=== PATIENT | male | born 1935 | race Hispanic/Latino ===

== ENCOUNTER 2016-08-13 13:32 | Emergency (ER) | payer MEDICARE, BC ==
[2016-08-13 13:33] VITALS: BMI 37.1
[2016-08-13 14:32] VITALS: PULSE 78
[2016-08-13 15:29] LABS: HEMATOCRIT 36.2 % (35.0-51.0); MEAN CELL VOLUME 94.3 fl (80.0-94.0); MEAN CORPUSCULAR HEMOGLOBIN 31.9 pg (27.0-31.0); MEAN CORPUSCULAR HGB CONC 33.8 g/dL (33.0-37.0); RED CELL DISTRIBUTION WIDTH 13.9 % (11.5-14.5); WHITE BLOOD COUNT 5.2 K/uL (4.8-10.8)
--- NOTE | 2016-08-13 15:29 | ED PDOC ---
HPI: Hypertension/Hypotension Time Seen by Provider: 08/13/16 14:20 Chief Complaint (Nursing): High Blood Pressure Chief Complaint (Provider): Watery eyes for a long time History Per: Patient History/Exam Limitations: no limitations Onset/Duration Of Symptoms: Days Current Symptoms Are (Timing): Still Present Associated Symptoms: denies: Chest Pain, Dyspnea, Dizziness, Blurred Vision, Focal Weakness, Headache Quality Of Symptoms: Asymptomatic Additional Complaint(s): Pt states when he told people at his back about his watery eyes they told him to check his blood pressure. Pt states he went to [facility] and checked his BP. PT states systolic was 148 so he came to the ER. Pt states he eats a lot of fish and thinks his watery eyes are due to the fish. Pt denies similar in the past. PT reports seeing his eye doctor 3 months ago but the watery eyes began shorty after (approx 2 months). Past Medical History Reviewed: Historical Data, Nursing Documentation, Vital Signs Vital Signs: Last Vital Signs Temp 98.4 F 08/13/16 13:46 Pulse 78 08/13/16 14:30 Resp 18 08/13/16 13:46 BP 127/84 08/13/16 14:30 Pulse Ox 99 08/13/16 13:46 - Medical History PMH: Back Problems - Surgical History Surgical History: Denies: Pacemaker - Family History Family History: States: No Known Family Hx - Home Medications Home Medications: Ambulatory Orders Medication Instructions Recorded Acetaminophen [Tylenol] 325 mg PO PRN 08/26/13 Naproxen 500 mg PO Q12 #14 tab 06/29/14 Cetirizine HCl [Zyrtec] 10 mg PO DAILY #15 tab.rapdis 08/13/16 - Allergies Allergies/Adverse Reactions: Allergies Allergy/AdvReac Type Severity Reaction Status Date / Time azithromycin Allergy RASH Verified 08/13/16 13:46 Review of Systems ROS Statement: Except As Marked, All Systems Reviewed And Found Negative Eyes: Positive for: Other (Watery eyes ) Physical Exam - Reviewed Nursing Documentation Reviewed: Yes Vital Signs Reviewed: Yes - Physical Exam Appears: Positive for: Well, Non-toxic, No Acute Distress Head Exam: Positive for: ATRAUMATIC, NORMAL INSPECTION, NORMOCEPHALIC Skin: Positive for: Normal Color, Warm, DRY Eye Exam: Positive for: Normal appearance, EOMI, PERRL ENT: Positive for: Normal ENT Inspection Neck: Positive for: Normal, Painless ROM Cardiovascular/Chest: Positive for: Regular Rate, Rhythm Respiratory: Positive for: CNT, Normal Breath Sounds Gastrointestinal/Abdominal: Positive for: Normal Exam, Bowel Sounds, Soft Back: Positive for: Normal Inspection Extremity: Positive for: Normal ROM Neurologic/Psych: Positive for: Alert, Oriented - Laboratory Results Result Diagrams: 08/13/16 15:20 08/13/16 15:20 - ECG O2 Sat by Pulse Oximetry: 99 Disposition - Clinical Impression Clinical Impression: Seasonal allergies - Patient ED Disposition Is Patient to be Admitted: No - Disposition Referrals: Santos Marroquin MD [Staff Provider] - Disposition: Routine/Home Disposition Time: 16:56 Condition: GOOD Prescriptions: Cetirizine HCl [Zyrtec] 10 mg PO DAILY #15 tab.rapdis Instructions: Allergies (ED) Print Language: POLISH
[2016-08-13 15:42] LABS: ALB/GLOB RATIO 1.2 (1.0-2.1); ALKALINE PHOSPHATASE 118 U/L (38-126); ALT/SGPT 31 U/L (21-72); AST/SGOT 29 U/L (17-59); BILIRUBIN,TOTAL 0.4 mg/dl (0.2-1.3); BLOOD UREA NITROGEN 18 mg/dl (9-20); CALCIUM 9.1 mg/dL (8.4-10.2); CARBON DIOXIDE 24 mmol/L (22-30); CHLORIDE 106 mmol/L (98-107); GFR AFRICAN-AMERICAN > 60; GLUCOSE,RANDOM 129 mg/dL (75-110); POTASSIUM 4.3 MMOL/L (3.6-5.0); SODIUM 140 mmol/l (132-148); TOTAL PROTEIN 7.4 G/DL (6.3-8.2)
[2016-08-13 17:58] VITALS: BP 126/81; RESP 16; TEMP 98; O2SAT 98
--- NOTE | 2016-08-18 07:15 | CARD ---
APPROVED REPORT EKG Measurement Heart [id number] <Conclusion> Sinus rhythm with premature atrial complexes Otherwise normal ECG
== END 2016-08-13 17:55 | disposition home or self-care (01) ==
LOC: H.ER 13:32
DX: J30.2 Other seasonal allergic rhinitis (principal); I10 Essential (primary) hypertension; Z88.0 Allergy status to penicillin

== ENCOUNTER 2016-11-23 10:33 | Inpatient (IN) | payer BC, MEDICARE ==
[2016-11-23 10:33] VITALS: BMI 37.1
[2016-11-23] MEDS ORDERED: Sodium Chloride 0.9% 1,000 ML IV STA (11:13)
[2016-11-23] MEDS ORDERED: Iohexol 240 (50 ml) PO ONE (11:31)
[2016-11-23] MEDS ORDERED: Iohexol 240 (50 ml) ONE (11:50)
--- NOTE | 2016-11-23 12:02 | ED PDOC ---
HPI: Abdomen Time Seen by Provider: 11/23/16 10:59 Chief Complaint (Nursing): GI Problem Chief Complaint (Provider): GI Problem History Per: Patient History/Exam Limitations: no limitations Onset/Duration Of Symptoms: Days Location?: [facility] Current Symptoms Are (Timing): Still Present Additional Complaint(s): 81 y/o male presents to the emergency department with a complaint of an abdominal pain, vomiting, and diarrhea since yesterday, 11/22/2016, after eating a banana. Associated with generalized weakness, chills, and urinating small amounts with strong odor. Denies chest pain, shortness of breath, syncope , or melena. Past Medical History Reviewed: Historical Data, Nursing Documentation, Vital Signs Vital Signs: Last Vital Signs Temp 97.8 F 11/23/16 11:00 Pulse 91 H 11/23/16 11:00 Resp 19 11/23/16 11:00 BP 155/83 H 11/23/16 11:00 Pulse Ox 99 11/23/16 16:20 - Medical History PMH: Back Problems - Surgical History Surgical History: Denies: Pacemaker Other surgeries: laproscoptomy polyp removal about 20 years ago - Family History Family History: States: Unknown Family Hx - Social History Current smoker - smoking cessation education provided: No Alcohol: Social Drugs: Denies - Home Medications Home Medications: Ambulatory Orders Medication Instructions Recorded No Known Home Med 11/23/16 - Allergies Allergies/Adverse Reactions: Allergies Allergy/AdvReac Type Severity Reaction Status Date / Time azithromycin Allergy RASH Verified 08/13/16 13:46 Review of Systems ROS Statement: Except As Marked, All Systems Reviewed And Found Negative Constitutional: Positive for: Chills, Weakness (Generalized) Cardiovascular: Negative for: Chest Pain Respiratory: Negative for: Shortness of Breath Gastrointestinal: Positive for: Vomiting, Abdominal Pain, Diarrhea. Negative for: Melena Genitourinary Male: Positive for: Other (Urinating small amounts with strong odor) Neurological: Negative for: Other (Syncope) Physical Exam - Reviewed Nursing Documentation Reviewed: Yes Vital Signs Reviewed: Yes - Physical Exam Appears: Positive for: Non-toxic (With poor hygiene and smells of urine), No Acute Distress Head Exam: Positive for: ATRAUMATIC, NORMAL INSPECTION, NORMOCEPHALIC Skin: Positive for: Normal Color, Warm, Dry Neck: Positive for: Normal, Supple Cardiovascular/Chest: Positive for: Regular Rate, Rhythm. Negative for: Murmur Respiratory: Positive for: Normal Breath Sounds. Negative for: Accessory Muscle Use, Respiratory Distress Gastrointestinal/Abdominal: Positive for: Soft, Tenderness (to the lower abdominal region), Distended (Softly). Negative for: Normal Exam Extremity: Positive for: Normal ROM. Negative for: Pedal Edema Neurologic/Psych: Positive for: Alert, Oriented (x3) - Laboratory Results Result Diagrams: 11/23/16 11:55 11/23/16 11:55 - ECG O2 Sat by Pulse Oximetry: 99 (RA) Pulse Ox Interpretation: Normal Medical Decision Making Medical Decision Making: Time: 11:13 Initial impression: Abdominal pain. Blood and CT ordered rule out obstruction. Initial plan: --Abd & Pelvis PO & IV Contrast CT --CMP --Lipase --CBC w/ diff --Bentyl 10 mg PO --Iohexol 50 ml PO --Urine Culture --Urinalysis --Sodium Chloride 1L IV --Reevaluation Scribe Attestation: Documented by Priscila Ledesma, acting as a scribe for Ronnie Portillo MD. Provider Scribe Attestation: All medical record entries made by the Scribe were at my direction and personally dictated by me. I have reviewed the chart and agree that the record accurately reflects my personal performance of the history, physical exam, medical decision making, and the department course for this patient. I have also personally directed, reviewed, and agree with the discharge instructions and disposition. ED OBSERVATION Discharge: Yes Date of observation admission: 11/23/16 Time of observation admission: 13:30 - Observation admission statement Patient is being placed in observation because:: abdominal pain and UTI - Goals of Observation Goals of observation are:: resolution of symptoms - Progress Note Progress Note: 11/23/16 15:00 --Patient resting comfortably and pending CT results. 11/23/16 15:10 Abd & pelvis CT FINDINGS: LOWER THORAX: There is paraseptal emphysema in the lower lobes. LIVER: The liver is normal in size and there is diffuse fatty infiltration. No gross lesion or ductal dilatation. GALLBLADDER AND BILE DUCTS: The gallbladder is well distended. There is a solitary gallstone PICC PANCREAS: Mild fatty atrophy. No gross lesion or ductal dilatation. SPLEEN: Normal without focal lesion. ADRENALS: Normal in size without discrete nodule. KIDNEYS AND URETERS: Normal in size and there is homogeneous enhancement. No hydronephrosis. No solid mass. VASCULATURE: Unremarkable. No aortic aneurysm. BOWEL: Status post right hemicolectomy and ileotransverse anastomosis. The stomach is markedly distended. There is moderate diffuse dilatation of the small bowel loops with air-fluid levels. No definite transition zone is identified. There is mild sigmoid diverticulosis without CT evidence for acute diverticulitis. The colon is fluid-filled. PERITONEUM: No free fluid. No free air. LYMPH NODES: No enlarged lymph nodes. BLADDER: Unremarkable. REPRODUCTIVE: Mild enlargement of the prostate gland. 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 OTHER FINDINGS: None. IMPRESSION: 1. Findings are most compatible with high-grade acute small bowel obstruction. No definite transition zone is identified but given diffuse dilatation of the small bowel loops leading up to ileocolic anastomosis, adhesions is a likely etiology. 2. Mild sigmoid diverticulosis without CT evidence for acute diverticulitis. 3. Fatty liver. 11/23/16 15:14 --Rocephin 1 gm for UTI --Nasogastric Tube Insertion ordered, pt refused. 11/23/16 15:31 --General surgery consult: Consulted with Dr. Niall Cary MD- surg resident aware and at bedside ~1550 --Admit to hospital routine: Inpatient in telemetry for small bowel obstruction and UTI under the care of Dr. Santos Marroquin MD Disposition - Clinical Impression Clinical Impression: SBO (small bowel obstruction), UTI (urinary tract infection) - Patient ED Disposition Is Patient to be Admitted: Yes (As inpatient in telemetry) Counseled Patient/Family Regarding: Studies Performed, Diagnosis - Disposition Disposition Time: 13:29 Condition: FAIR - Pt Status Changed To: Hospital Disposition Of: Inpatient - Admit Certification Admit to Inpatient:: After my assessment, the patient will require hospitalization for at least two midnights. This is because of the severity of symptoms shown, intensity of services needed, and/or the medical risk in this patient being treated as an outpatient. - POA Present On Arrival: None
[2016-11-23 12:03] LABS: BASO % 0.2 % (0.0-2.0); EOS # 0.1 K/uL (0.0-0.7); EOS % 0.7 % (0.0-4.0); HEMATOCRIT 42.6 % (35.0-51.0); LYMPH # 3.3 K/uL (1.0-4.3); LYMPH % 30.4 % (20.0-40.0); MEAN CELL VOLUME 95.4 fl (80.0-94.0); MEAN CORPUSCULAR HEMOGLOBIN 31.8 pg (27.0-31.0); MEAN CORPUSCULAR HGB CONC 33.4 g/dL (33.0-37.0); MEAN PLATELET VOLUME 9.9 fl (7.2-11.7); MONO # 0.8 K/uL (0.0-0.8); MONO % 7.5 % (0.0-10.0); NEUT # 6.6 K/uL (1.8-7.0); NEUT % 61.2 % (50.0-75.0); RED CELL DISTRIBUTION WIDTH 14.7 % (11.5-14.5); WHITE BLOOD COUNT 10.8 K/uL (4.8-10.8)
[2016-11-23 12:16] LABS: ALB/GLOB RATIO 1.2 (1.0-2.1); ALKALINE PHOSPHATASE 93 U/L (38-126); ALT/SGPT 30 U/L (21-72); AST/SGOT 35 U/L (17-59); BILIRUBIN,TOTAL 1.1 mg/dl (0.2-1.3); BLOOD UREA NITROGEN 20 mg/dl (9-20); CALCIUM 10.3 mg/dL (8.4-10.2); CARBON DIOXIDE 26 mmol/L (22-30); CHLORIDE 100 mmol/L (98-107); GFR AFRICAN-AMERICAN > 60; GLUCOSE,RANDOM 117 mg/dL (75-110); LIPASE 48 U/L (23-300); POTASSIUM 4.8 MMOL/L (3.6-5.0); SODIUM 138 mmol/l (132-148); TOTAL PROTEIN 8.5 G/DL (6.3-8.2)
[2016-11-23 12:18] LABS: RBC URINE 112 /hpf (0-3); TRANSITIONAL EPITHIAL 2 /hpf (0-3); URINE BACTERIA MANY (<OCC); URINE BILIRUBIN NEGATIVE (NEGATIVE); URINE COLOR AMBER (YELLOW); URINE GLUCOSE (UA) NEG (Normal); URINE KETONE NEGATIVE (NEGATIVE); URINE LEUKOCYTE ESTERASE MOD Leu/uL (Negative); URINE PROTEIN 100 mg/dL (NEGATIVE); URINE UROBILINOGEN 0.2-1.0 mg/dL (0.2-1.0); WBC CLUMPS MANY /hpf; WBC URINE 864 /hpf (0-5)
[2016-11-23 12:20] LABS: URINE BLOOD MODERATE (NEGATIVE)
[2016-11-23] MEDS ORDERED: Iohexol 300 100 ML IJ ONE (13:54)
[2016-11-23] MEDS ORDERED: Sodium Chloride 0.9% 50 ML IV ONE (13:55)
--- NOTE | 2016-11-23 15:12 | CT ---
PROCEDURE: CT Abdomen and Pelvis with contrast HISTORY: Abdominal pain COMPARISON: None. TECHNIQUE: CT scan of the abdomen and pelvis was performed after intravenous administration of contrast. Oral contrast was administered. Coronal and sagittal reformatted images were obtained. Contrast dose: 95 mL Omnipaque Radiation dose: Total exam DLP = 1116.89 mGy-cm. This CT exam was performed using one or more of the following dose reduction techniques: Automated exposure control, adjustment of the mA and/or kV according to patient size, and/or use of iterative reconstruction technique. FINDINGS: LOWER THORAX: There is paraseptal emphysema in the lower lobes. LIVER: The liver is normal in size and there is diffuse fatty infiltration. No gross lesion or ductal dilatation. GALLBLADDER AND BILE DUCTS: The gallbladder is well distended. There is a solitary gallstone PICC PANCREAS: Mild fatty atrophy. No gross lesion or ductal dilatation. SPLEEN: Normal without focal lesion. ADRENALS: Normal in size without discrete nodule. KIDNEYS AND URETERS: Normal in size and there is homogeneous enhancement. No hydronephrosis. No solid mass. VASCULATURE: Unremarkable. No aortic aneurysm. BOWEL: Status post right hemicolectomy and ileotransverse anastomosis. The stomach is markedly distended. There is moderate diffuse dilatation of the small bowel loops with air-fluid levels. No definite transition zone is identified. There is mild sigmoid diverticulosis without CT evidence for acute diverticulitis. The colon is fluid-filled. PERITONEUM: No free fluid. No free air. LYMPH NODES: No enlarged lymph nodes. BLADDER: Unremarkable. REPRODUCTIVE: Mild enlargement of the prostate gland. 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 OTHER FINDINGS: None. IMPRESSION: 1. Findings are most compatible with high-grade acute small bowel obstruction. No definite transition zone is identified but given diffuse dilatation of the small bowel loops leading up to ileocolic anastomosis, adhesions is a likely etiology. 2. Mild sigmoid diverticulosis without CT evidence for acute diverticulitis. 3. Fatty liver.
--- NOTE | 2016-11-23 16:03 | CP.PCM.CON ---
<Leonard Rosales - Last Filed: 11/23/16 16:03> History of Present Illness - History of Present Illness History of Present Illness: Surgery 81 M with PSH of colectomy came to ED with sudden abd pain, N/V. Pt reports that the pain started yesterday after eating banana. Pt also reports that he had multiple episodes of vomiting overnight. No bloody , non bilious. Admits to having diarrhea and passing gas. Flatus relieves the pain. Pain is located epigastric area. Labs are unremarkable. UA show many WBC. CT reads high grade SBO with small ventral hernia. Surgery is consulted to evaluate for SBO. 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 Denies F/CP/SOB/hematemesis/hematochezia/hematuria/GUEVARA Review of Systems - Review of Systems Review of Systems: See HPI Past Patient History - Past Social History Alcohol: Social Drugs: Denies - CARDIAC Hx Pacemaker: No - NEUROLOGICAL Hx Paralysis: No - HEMATOLOGICAL/ONCOLOGICAL Hx Blood Transfusions: No - MUSCULOSKELETAL/RHEUMATOLOGICAL Hx Musculoskeletal Disorders: Yes (BILATERAL KNEE PAIN, BACK PAIN) Hx Back Pain: Yes - PSYCHIATRIC Hx Emotional Abuse: No Hx Physical Abuse: No Hx Substance Use: No - SURGICAL HISTORY Hx Surgeries: Yes Other/Comment: Removal of stomach polyp - ANESTHESIA Hx Anesthesia: Yes Hx Anesthesia Reactions: No Hx Malignant Hyperthermia: No Meds Allergies/Adverse Reactions: Allergies Allergy/AdvReac Type Severity Reaction Status Date / Time azithromycin Allergy RASH Verified 08/13/16 13:46 - Medications Medications: Current Medications Ceftriaxone Sodium 1 gm/ (Sodium Chloride) 100 mls @ 100 mls/hr IVPB STAT STA Stop: 11/23/16 16:13 Physical Exam - Constitutional Appears: No Acute Distress - Head Exam Head Exam: ATRAUMATIC, NORMAL INSPECTION, NORMOCEPHALIC - Eye Exam Eye Exam: EOMI, Normal appearance, PERRL Pupil Exam: NORMAL ACCOMODATION, PERRL - ENT Exam ENT Exam: Mucous Membranes Moist, Normal Exam - Neck Exam Neck exam: Positive for: Normal Inspection - Respiratory Exam Respiratory Exam: Clear to Auscultation Bilateral, NORMAL BREATHING PATTERN - Cardiovascular Exam Cardiovascular Exam: REGULAR RHYTHM, +S1, +S2 - GI/Abdominal Exam GI & Abdominal Exam: Distended, Soft, Tenderness. absent: Firm, Guarding, Mass , Pulsatile Mass, Rebound, Rigid Additional comments: Well healed incision wound - Extremities Exam Extremities exam: Positive for: full ROM, normal inspection. Negative for: tenderness - Back Exam Back exam: NORMAL INSPECTION - Neurological Exam Neurological exam: Alert, CN II-XII Intact, Normal Gait, Oriented x3, Reflexes Normal - Psychiatric Exam Psychiatric exam: Normal Affect, Normal Mood - Skin Skin Exam: Dry, Intact, Normal Color, Warm Results - Vital Signs Recent Vital Signs: Last Vital Signs Temp 97.8 F 11/23/16 11:00 Pulse 91 H 11/23/16 11:00 Resp 19 11/23/16 11:00 BP 155/83 H 11/23/16 11:00 Pulse Ox 99 11/23/16 15:20 - Labs Result Diagrams: 11/23/16 11:55 11/23/16 11:55 Assessment & Plan - Assessment and Plan (Free Text) Assessment: 81M w psh of colectomy for colon polyps came with abd pain/N/V/D CT : high grade SBO, small ventral hernia UA: many WBC -Pt refused NGT -NPO -IVF -conservative management -Medical management Will DW attending <Niall Cary - Last Filed: 11/23/16 18:13> History of Present Illness - History of Present Illness History of Present Illness: Patient was seen and examined at the bedside. Agree with resident's note above. Meds - Medications Medications: Current Medications Acetaminophen (Tylenol 325mg Tab) 650 mg PO Q4 PRN PRN Reason: Fever >100.4 F Hydromorphone HCl (Dilaudid) 0.5 mg IVP Q4 [facility] Sodium Chloride (Sodium Chloride 0.9%) 1,000 mls @ 150 mls/hr IV .Q6H40M [facility] Stop: 11/24/16 16:55 Ondansetron HCl (Zofran Inj) 4 mg IVP Q4 PRN PRN Reason: Nausea/Vomiting Pantoprazole Sodium (Protonix Inj) 40 mg IVP DAILY [facility] Results - Vital Signs Recent Vital Signs: Last Vital Signs Temp 97.8 F 11/23/16 11:00 Pulse 91 H 11/23/16 11:00 Resp 11/23/16 11:00 BP 155/83 H 11/23/16 11:00 Pulse Ox 99 11/23/16 16:38 - Labs Result Diagrams: 11/23/16 11:55 11/23/16 11:55 - Imaging and Cardiology CT scan - abdomen Status: Image reviewed by me, Report reviewed by me Assessment & Plan - Assessment and Plan (Free Text) Plan: - Keep NPO - IV fluids - pain control - Zofran prn - NG tube if vomits - repeat labs in am - Pepcid - Will follow
[2016-11-23] MEDS ORDERED: cefTRIAXone (Rocephin) 1 gm Inj ONE (16:23)
[2016-11-23] MEDS ORDERED: HYDROmorphone 0.5 mg/0.5 ml ISec ONE (18:27)
[2016-11-23] MEDS: Sodium Chloride 0.9% 1,000 ML IV SCH (18:34)
[2016-11-24] MEDS ORDERED: Albuterol-Ipratrop 3 mg / 0.5 (3 ml) UD INH PRN (01:40)
[2016-11-24] MEDS ORDERED: HYDROmorphone 0.5 mg/0.5 ml ISec IVP PRN (01:42)
[2016-11-24] MEDS: Sodium Chloride 0.9% 1,000 ML IV SCH ×4 (02:09→16:42)
[2016-11-24] MEDS: Piperacillin/Tazobact 3.375 GM in Sodium Chloride 0.9% 100 ML IVPB SCH ×4 (03:26→21:32)
[2016-11-24 06:19] LABS: HEMATOCRIT 34.9 % (35.0-51.0); MEAN CELL VOLUME 96.7 fl (80.0-94.0); MEAN CORPUSCULAR HEMOGLOBIN 32.2 pg (27.0-31.0); MEAN CORPUSCULAR HGB CONC 33.3 g/dL (33.0-37.0); RED CELL DISTRIBUTION WIDTH 14.7 % (11.5-14.5); WHITE BLOOD COUNT 6.9 K/uL (4.8-10.8)
[2016-11-24 06:50] LABS: ALB/GLOB RATIO 1.1 (1.0-2.1); ALKALINE PHOSPHATASE 68 U/L (38-126); ALT/SGPT 24 U/L (21-72); AST/SGOT 22 U/L (17-59); BLOOD UREA NITROGEN 17 mg/dl (9-20); CALCIUM 8.5 mg/dL (8.4-10.2); CARBON DIOXIDE 22 mmol/L (22-30); CHLORIDE 105 mmol/L (98-107); CHOLESTEROL 146 mg/dL (0-199); GFR AFRICAN-AMERICAN > 60; GLUCOSE,RANDOM 105 mg/dL (75-110); POTASSIUM 4.1 MMOL/L (3.6-5.0); SODIUM 137 mmol/l (132-148); TOTAL PROTEIN 6.8 G/DL (6.3-8.2)
[2016-11-24 06:51] LABS: T4 6.45 ug/dl (5.5-11.0)
[2016-11-24 07:05] LABS: THYROID STIMULATING HORMONE 4.35 mIU/ML (0.46-4.68)
--- NOTE | 2016-11-24 07:41 | CP.PCM.PN ---
Subjective - Date & Time of Evaluation Date of Evaluation: 11/24/16 Time of Evaluation: 07:38 - Subjective Subjective: Surgery Patient reports resolution of abdominal pain. He denies n/v/f/c. He reports + flatus. States he has appetite. Objective - Vital Signs/Intake and Output Vital Signs (last 24 hours): Temp Pulse Resp BP Pulse Ox 98.2 F 98 H 20 123/76 98 11/24/16 01:23 11/24/16 01:23 11/24/16 01:23 11/24/16 01:11/24/16 01:23 - Medications Medications: Current Medications Acetaminophen (Tylenol 325mg Tab) 650 mg PO Q4 PRN PRN Reason: Fever >100.4 F Albuterol/Ipratropium (Duoneb 3 Mg/0.5 Mg (3 Ml) Ud) 3 ml INH RQ6 PRN PRN Reason: Shortness of Breath Hydromorphone HCl (Dilaudid) 0.5 mg IVP Q4 PRN PRN Reason: Pain, moderate (4-7) Sodium Chloride (Sodium Chloride 0.9%) 1,000 mls @ 150 mls/hr IV .Q6H40M [facility] Stop: 11/24/16 16:55 Last Admin: 11/24/16 06:30 Dose: Not Given Piperacillin Sod/Tazobactam (Sod 3.375 gm/ Sodium Chloride) 100 mls @ 100 mls/ hr IVPB Q6 [facility] Last Admin: 11/24/16 03:26 Dose: 100 mls/hr Ceftriaxone Sodium 1 gm/ (Sodium Chloride) 100 mls @ 100 mls/hr IVPB DAILY [facility] Ondansetron HCl (Zofran Inj) 4 mg IVP Q4 PRN PRN Reason: Nausea/Vomiting Pantoprazole Sodium (Protonix Inj) 40 mg IVP DAILY [facility] Last Admin: 11/23/16 18:38 Dose: 40 mg - Labs Labs: 11/24/16 05:25 11/24/16 05:25 PT 12.2 Seconds (9.8-13.1) 11/24/16 05:25 INR 1.2 (0.9-1.2) 11/24/16 05:25 APTT 28.0 Seconds (25.6-37.1) 11/24/16 05:25 - Constitutional Appears: Non-toxic, No Acute Distress - Head Exam Head Exam: ATRAUMATIC, NORMOCEPHALIC - Eye Exam Eye Exam: EOMI, Normal appearance - ENT Exam ENT Exam: Mucous Membranes Moist - Cardiovascular Exam Cardiovascular Exam: REGULAR RHYTHM. absent: Tachycardia - GI/Abdominal Exam GI & Abdominal Exam: Soft. absent: Distended, Guarding, Tenderness, Rebound Additional comments: midline abdominal incision scar well healed - Neurological Exam Neurological Exam: Alert, Awake - Psychiatric Exam Psychiatric exam: Normal Affect, Normal Mood - Skin Skin Exam: Dry, Normal Color, Warm Assessment and Plan - Assessment and Plan (Free Text) Assessment: 81 y/o male w/ SBO, resolving Plan: -ok for trial of clears -monitor for bowel function -encourage oob, ambulating -will continue to monitor -d/w attending [facility] PGY3
--- NOTE | 2016-11-24 16:10 | CP.PCM.HP ---
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 Pt was c/o of intermittent abdominal pain, lower abdomen, colic type, severe intensity 10:10 associated to nausea, vomiting, non bloody, non bilious and diarrhea, yellowish color, no hematemesis or rectal bleeding. Worsening symptoms: Urine with strong odor, generalized weakness, found with high grade acute SBO, small ventral hernia on CT abdomen/Pelvis while at the ER evaluation. As per Pt; Pain started about 1:00 or 2:00 AM on DOA after eating 2 Bananas he begins with abdominal pain, nausea, several episodes of vomiting and diarrhea. Symptoms progressively worsening having chills, weakness, prompting him to ER visit. Pt denied: Fever, melena, hematuria, hematemesis, hematochezia, hematuria, SOB , cough, CP, palpitations, syncope. 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 Hx COPD, HTN, Hx Back pain, b/l knee pain. Present on Admission - Present on Admission Any Indicators Present on Admission: No Review of Systems - Constitutional Constitutional: Chills, Weakness, Other (Obesity BMI 37.1 ) - EENT Eyes: Requires Corrective Lenses Ears: Other Nose/Mouth/Throat: Other (negative) - Cardiovascular Cardiovascular: Other (negative) - Respiratory Respiratory: Other (negative) - Gastrointestinal Gastrointestinal: Abdominal Pain, Diarrhea, Nausea, Vomiting ( ) - Genitourinary Genitourinary: Voiding Freq/Small Amts - Musculoskeletal Musculoskeletal: Other (negative) - Integumentary Integumentary: Other (negative) - Neurological Neurological: Other (negative) - Psychiatric Psychiatric: Other (negative) - Endocrine Endocrine: Other (Obesity.) - Hematologic/Lymphatic Hematologic: Other (negative) Past Patient History - Past Medical History & Family History Past Medical History?: Yes Pertinent Family History: Unknown - Past Social History Smoking Status: Never Smoked Alcohol: None Drugs: Denies Home Situation {Lives}: With Family - CARDIAC Hx Cardiac Disorders: Yes Hx Hypertension: Yes Hx Pacemaker: No - PULMONARY Hx Respiratory Disorders: Yes Hx Chronic Obstructive Pulmonary Disease (COPD): Yes - NEUROLOGICAL Hx Neurological Disorder: No Hx Paralysis: No - HEENT Hx HEENT Problems: Yes (Use eyeglasess) - RENAL Hx Chronic Kidney Disease: No - ENDOCRINE/METABOLIC Hx Endocrine Disorders: No - HEMATOLOGICAL/ONCOLOGICAL Hx Blood Disorders: No Hx AIDS: No Hx Blood Transfusions: No Hx Cancer: Yes (Colon) Hx Human Immunodeficiency Virus (HIV): No - INTEGUMENTARY Hx Dermatological Problems: No - MUSCULOSKELETAL/RHEUMATOLOGICAL Hx Musculoskeletal Disorders: Yes (BILATERAL KNEE PAIN, BACK PAIN) Hx Back Pain: Yes Hx Falls: No - GASTROINTESTINAL Hx Gastrointestinal Disorders: Yes (Diverticulosis) Hx Gastritis: Yes - GENITOURINARY/GYNECOLOGICAL Hx Genitourinary Disorders: No - PSYCHIATRIC Hx Psychophysiologic Disorder: No Hx Emotional Abuse: No Hx Physical Abuse: No Hx Substance Use: No - SURGICAL HISTORY Hx Surgeries: Yes Other/Comment: Removal of Colon polyps - ANESTHESIA Hx Anesthesia: Yes Hx Anesthesia Reactions: No Hx Malignant Hyperthermia: No Has any member of the family had a problem w/ anesthesia?: No Meds Allergies/Adverse Reactions: Allergies Allergy/AdvReac Type Severity Reaction Status Date / Time azithromycin Allergy RASH Verified 08/13/16 13:46 Physical Exam - Constitutional Appears: No Acute Distress, Other (Obese.) - Head Exam Head Exam: NORMAL INSPECTION - Eye Exam Eye Exam: PERRL - ENT Exam ENT Exam: Normal Exam - Neck Exam Neck exam: Positive for: Normal Inspection - Respiratory Exam Respiratory Exam: NORMAL BREATHING PATTERN - Cardiovascular Exam Cardiovascular Exam: REGULAR RHYTHM - GI/Abdominal Exam GI & Abdominal Exam: Distended (slightly), Guarding (mild), Normal Bowel Sounds , Tenderness (mild periumbilical area). absent: Rebound Additional comments: Mid line surgical scar healed - Extremities Exam Extremities exam: Positive for: normal inspection - Back Exam Back exam: NORMAL INSPECTION - Neurological Exam Neurological exam: Alert, Oriented x3 - Psychiatric Exam Psychiatric exam: Normal Mood - Skin Skin Exam: Warm Results - Vital Signs Recent Vital Signs: Last Vital Signs Temp 97.9 F 11/24/16 08:06 Pulse 59 L 11/24/16 08:06 Resp 20 11/24/16 08:06 BP 123/71 11/24/16 08:06 Pulse Ox 96 11/24/16 08:06 reviewed Osmar - Labs Result Diagrams: 11/24/16 05:25 11/24/16 05:25 Labs: Laboratory Results - last 24 hr 11/24/16 11/24/16 11/24/16 05:25 05:25 05:25 WBC 6.9 RBC 3.61 L Hgb 11.6 L D Hct 34.9 L MCV 96.7 H MCH 32.2 H MCHC 33.3 RDW 14.7 H Plt Count 149 PT 12.2 INR 1.2 APTT 28.0 Sodium 137 Potassium 4.1 Chloride 105 Carbon Dioxide 22 Anion Gap 14 BUN 17 Creatinine 1.1 Est GFR ( Amer) > 60 Est GFR (Non-Af Amer) > 60 Random Glucose 105 Calcium 8.5 Total Bilirubin 1.0 AST 22 ALT 24 Alkaline Phosphatase 68 Total Protein 6.8 Albumin 3.5 D Globulin 3.2 Albumin/Globulin Ratio 1.1 Triglycerides 187 H Cholesterol 146 LDL Cholesterol Direct 78 HDL Cholesterol 31 Thyroxine (T4) 6.45 TSH 3rd Generation 4.35 reviewed Loy[facility]Clarence - Imaging and Cardiology CT scan - abdomen Status: Report reviewed by me (Osmar) CT scan - pelvis Status: Report reviewed by me (Osmar) Assessment & Plan (1) SBO (small bowel obstruction) Status: Acute (2) UTI (urinary tract infection) Status: Acute (3) COPD (chronic obstructive pulmonary disease) Status: Chronic Priority: Low (4) HTN (hypertension) Status: Chronic Priority: Medium (5) Gastritis Status: Chronic Priority: Medium (6) Obesity (BMI 35.0-39.9 without comorbidity) Status: Chronic Priority: High - Assessment and Plan (Free Text) Plan: Pt tolerate bland diet, cleared by Surgeon to be discharged, f/u [facility] as out Pt , f/u in my office in one week. - Date & Time Date: 11/24/16 Time: 10:30
[2016-11-25] MEDS: Piperacillin/Tazobact 3.375 GM in Sodium Chloride 0.9% 100 ML IVPB SCH ×3 (03:03→16:53)
--- NOTE | 2016-11-25 09:02 | CP.PCM.PN ---
Subjective - Date & Time of Evaluation Date of Evaluation: 11/25/16 Time of Evaluation: 08:59 - Subjective Subjective: Surgery: Dr. Omalley Patient states he feels better today. He reports passing lots of flatus. He denies bowel movement. He states at time he has pain in the lower abdomen but not like the pain was when he came into the hospital. He states he has not been ambulating much. Objective - Vital Signs/Intake and Output Vital Signs (last 24 hours): Temp Pulse Resp BP Pulse Ox 97.6 F 59 L 20 130/81 99 11/25/16 07:37 11/25/16 07:37 11/25/16 07:37 11/25/16 07:37 11/25/16 07:37 - Medications Medications: Current Medications Acetaminophen (Tylenol 325mg Tab) 650 mg PO Q4 PRN PRN Reason: Fever >100.4 F Albuterol/Ipratropium (Duoneb 3 Mg/0.5 Mg (3 Ml) Ud) 3 ml INH RQ6 PRN PRN Reason: Shortness of Breath Hydromorphone HCl (Dilaudid) 0.5 mg IVP Q4 PRN PRN Reason: Pain, moderate (4-7) Piperacillin Sod/Tazobactam (Sod 3.375 gm/ Sodium Chloride) 100 mls @ 100 mls/ hr IVPB Q6 [facility] Last Admin: 11/25/16 03:03 Dose: 100 mls/hr Ceftriaxone Sodium 1 gm/ (Sodium Chloride) 100 mls @ 100 mls/hr IVPB DAILY [facility] Last Admin: 11/24/16 09:29 Dose: 100 mls/hr Ondansetron HCl (Zofran Inj) 4 mg IVP Q4 PRN PRN Reason: Nausea/Vomiting Pantoprazole Sodium (Protonix Inj) 40 mg IVP DAILY [facility] Last Admin: 11/24/16 09:28 Dose: 40 mg - Labs Labs: 11/24/16 05:25 11/24/16 05:25 PT 12.2 Seconds (9.8-13.1) 11/24/16 05:25 INR 1.2 (0.9-1.2) 11/24/16 05:25 APTT 28.0 Seconds (25.6-37.1) 11/24/16 05:25 - Constitutional Appears: Non-toxic, No Acute Distress - Head Exam Head Exam: ATRAUMATIC, NORMOCEPHALIC - Eye Exam Eye Exam: EOMI, Normal appearance - ENT Exam ENT Exam: Mucous Membranes Moist - Respiratory Exam Respiratory Exam: NORMAL BREATHING PATTERN. absent: Respiratory Distress - Cardiovascular Exam Cardiovascular Exam: REGULAR RHYTHM. absent: Tachycardia - GI/Abdominal Exam GI & Abdominal Exam: Soft. absent: Distended, Guarding, Rigid, Tenderness, Rebound Additional comments: obese - Neurological Exam Neurological Exam: Alert, Awake, Oriented x3 - Skin Skin Exam: Dry, Normal Color, Warm Assessment and Plan - Assessment and Plan (Free Text) Assessment: 81 y/o male w/ SBO, improving Plan: -still with some dilated loops on Xray, would cont liquid diet until bowel movement -imperative patient is out of bed ambulating frequently -cont IVFs -monitor for n/v -incentive spirometer -further recs per attending AKWhite [id number]
--- NOTE | 2016-11-25 10:17 | RAD ---
HISTORY: comparison COMPARISON: Comparison made with CT scan of the abdomen and pelvis 11/23/2016. FINDINGS: BOWEL: Re- demonstrated is multiple distended air-filled loops of small bowel an air-filled distended stomach. . Additionally, there appears to be residual contrast material 1st (presumably given for prior CT scan abdomen and pelvis )now seen within the distribution of the large bowel - distal descending and sigmoid colon and rectum, with what appear to represent multiple colonic diverticula as well. . Findings would preclude complete obstruction though with a partially bloody of age of partial and or intermittent small bowel obstruction not excluded. BONES: Not well delineated OTHER FINDINGS: None. IMPRESSION: Multiple air-filled and distended loops of small bowel with at air in distended stomach. Apparent contrast material opacifying the distal large bowel ; see above discussion for additional details
--- NOTE | 2016-11-25 15:16 | RAD ---
HISTORY: MD ordered COMPARISON: Comparison made with prior chest radiograph 06/29/2014 TECHNIQUE: Chest PA and lateral FINDINGS: LUNGS: Poor inspiration with low lung volumes, crowded bronchovascular markings and mild bibasilar atelectasis. Developing lower lobe infiltrates could be excluded followup radiographs. . PLEURA: No significant pleural effusion identified. No pneumothorax apparent. CARDIOVASCULAR: Cardiomegaly. OSSEOUS STRUCTURES: No significant abnormalities. VISUALIZED UPPER ABDOMEN: Normal. OTHER FINDINGS: None. IMPRESSION: Poor inspiration with low lung volumes, crowded bronchovascular markings and mild bibasilar atelectasis. Developing lower lobe infiltrates could be excluded followup radiographs. .
[2016-11-25 16:42] VITALS: BP 132/81; PULSE 73; RESP 19; TEMP 98.1; O2SAT 95
[2016-11-25] MEDS ORDERED: Tmp-Smz 800 mg-160 mg DS Tab PO SCH (17:00)
--- NOTE | 2016-11-25 20:42 | CARD ---
APPROVED REPORT EKG Measurement Heart [id number] <Conclusion> Normal sinus rhythm Normal ECG
--- NOTE | 2016-12-07 12:35 | CP.PCM.DIS ---
Provider - Provider Date of Admission: 11/23/16 15:54 Attending physician: Santos Peterson MD Consults: Surgery Time Spent in preparation of Discharge (in minutes): 25 Diagnosis - Discharge Diagnosis (1) SBO (small bowel obstruction) Status: Acute (2) UTI (urinary tract infection) Status: Acute (3) COPD (chronic obstructive pulmonary disease) Status: Chronic Priority: Low (4) HTN (hypertension) Status: Chronic Priority: Medium (5) Gastritis Status: Chronic Priority: Medium (6) Obesity (BMI 35.0-39.9 without comorbidity) Status: Chronic Priority: High Hospital Course - Lab Results Lab Results: Most Recent Lab Values WBC 6.9 K/uL (4.8-10.8) 11/24/16 05:25 RBC 3.61 Mil/uL (4.40-5.90) L 11/24/16 05:25 Hgb 11.6 g/dL (12.0-18.0) L D 11/24/16 05:25 Hct 34.9 % (35.0-51.0) L 11/24/16 05:25 MCV 96.7 fl (80.0-94.0) H 11/24/16 05:25 MCH 32.2 pg (27.0-31.0) H 11/24/16 05:25 MCHC 33.3 g/dL (33.0-37.0) 11/24/16 05:25 RDW 14.7 % (11.5-14.5) H 11/24/16 05:25 Plt Count 149 K/uL (130-400) 11/24/16 05:25 MPV 9.9 fl (7.2-11.7) 11/23/16 11:55 Neut % (Auto) 61.2 % (50.0-75.0) 11/23/16 11:55 Lymph % (Auto) 30.4 % (20.0-40.0) 11/23/16 11:55 Mora % (Auto) 7.5 % (0.0-10.0) 11/23/16 11:55 Eos % (Auto) 0.7 % (0.0-4.0) 11/23/16 11:55 Baso % (Auto) 0.2 % (0.0-2.0) 11/23/16 11:55 Neut # 6.6 K/uL (1.8-7.0) 11/23/16 11:55 Lymph # 3.3 K/uL (1.0-4.3) 11/23/16 11:55 Mora # 0.8 K/uL (0.0-0.8) 11/23/16 11:55 Eos # 0.1 K/uL (0.0-0.7) 11/23/16 11:55 Baso # 0.0 K/uL (0.0-0.2) 11/23/16 11:55 PT 12.2 Seconds (9.8-13.1) 11/24/16 05:25 INR 1.2 (0.9-1.2) 11/24/16 05:25 APTT 28.0 Seconds (25.6-37.1) 11/24/16 05:25 Sodium 137 mmol/l (132-148) 11/24/16 05:25 Potassium 4.1 MMOL/L (3.6-5.0) 11/24/16 05:25 Chloride 105 mmol/L (98-107) 11/24/16 05:25 Carbon Dioxide 22 mmol/L (22-30) 11/24/16 05:25 Anion Gap 14 (10-20) 11/24/16 05:25 BUN 17 mg/dl (9-20) 11/24/16 05:25 Creatinine 1.1 mg/dL (0.8-1.5) 11/24/16 05:25 Est GFR ( Amer) > 60 11/24/16 05:25 Est GFR (Non-Af Amer) > 60 11/24/16 05:25 Random Glucose 105 mg/dL (75-110) 11/24/16 05:25 Calcium 8.5 mg/dL (8.4-10.2) 11/24/16 05:25 Total Bilirubin 1.0 mg/dl (0.2-1.3) 11/24/16 05:25 AST 22 U/L (17-59) 11/24/16 05:25 ALT 24 U/L (21-72) 11/24/16 05:25 Alkaline Phosphatase 68 U/L (38-126) 11/24/16 05:25 Total Protein 6.8 G/DL (6.3-8.2) 11/24/16 05:25 Albumin 3.5 g/dL (3.5-5.0) D 11/24/16 05:25 Globulin 3.2 gm/dL (2.2-3.9) 11/24/16 05:25 Albumin/Globulin Ratio 1.1 (1.0-2.1) 11/24/16 05:25 Triglycerides 187 mg/DL (0-149) H 11/24/16 05:25 Cholesterol 146 mg/dL (0-199) 11/24/16 05:25 LDL Cholesterol Direct 78 mg/dL (0-129) 11/24/16 05:25 HDL Cholesterol 31 MG/DL (30-70) 11/24/16 05:25 Lipase 48 U/L (23-300) 11/23/16 11:55 Thyroxine (T4) 6.45 ug/dl (5.5-11.0) 11/24/16 05:25 TSH 3rd Generation 4.35 mIU/ML (0.46-4.68) 11/24/16 05:25 Urine Color [place] (YELLOW) 11/23/16 11:55 Urine Clarity Turbid (Clear) 11/23/16 11:55 Urine pH 7.0 (5.0-8.0) 11/23/16 11:55 Ur Specific [place] 1.020 (1.003-1.030) 11/23/16 11:55 Urine Protein 100 mg/dL (NEGATIVE) 11/23/16 11:55 Urine Glucose (UA) Neg mg/dL (Normal) 11/23/16 11:55 Urine Ketones Negative mg/dL (NEGATIVE) 11/23/16 11:55 Urine Blood Moderate (NEGATIVE) 11/23/16 11:55 Urine Nitrate Negative (NEGATIVE) 11/23/16 11:55 Urine Bilirubin Negative (NEGATIVE) 11/23/16 11:55 Urine Urobilinogen 0.2-1.0 mg/dL (0.2-1.0) 11/23/16 11:55 Ur Leukocyte Esterase Mod [place]/uL (Negative) 11/23/16 11:55 Urine RBC (Auto) 112 /hpf (0-3) H 11/23/16 11:55 Urine WBC Clumps (Auto) Many /hpf (NONE) H 11/23/16 11:55 Urine Microscopic WBC 864 /hpf (0-5) H 11/23/16 11:55 Ur Squamous Epith Cells 3 /hpf (0-5) 11/23/16 11:55 Ur Transition Epith Cell 2 /hpf (0-3) 11/23/16 11:55 Urine Bacteria Many (<OCC) H 11/23/16 11:55 Hyaline Casts >20 /hpf (0-2) H 11/23/16 11:55 - Date & Time of H&P Date of H&P: 11/24/16 Time of H&P: 10:30 Discharge Exam - Head Exam Head Exam: NORMAL INSPECTION Discharge Plan - Follow Up Plan Condition: FAIR Disposition: DISCHARGED TO HOME CARE Instructions: Sulfamethoxazole/Trimethoprim (By mouth), Urinary Tract Infection in Men (DC), Extended Spectrum Beta Lactamase (GEN), Bowel Obstruction (DC) Additional Instructions: FOLLOW UP WITH DR. PETERSON IN 1 WEEK GO TO YOUR PHARMACY TO GET PRESCRIPTION/MEDICATION
== END 2016-11-25 18:14 | disposition home health service (06) | DRG 394 ==
LOC: H.ER 10:33 → H.EROBSV 13:29 → OBSVTOIN 15:54 → H.ERHOLD 15:59 → H.MEDSURG1 22:31
PROVIDERS: ADMIT Internal Medicine Pulmonary Disease; ATTEND Internal Medicine Pulmonary Disease
DX: K43.6 Other and unspecified ventral hernia with obstruction, without gangrene (principal); N39.0 Urinary tract infection, site not specified; J44.9 Chronic obstructive pulmonary disease, unspecified; K76.0 Fatty (change of) liver, not elsewhere classified; K29.50 Unspecified chronic gastritis without bleeding; K57.30 Diverticulosis of large intestine without perforation or abscess without bleeding; B96.20 Unspecified Escherichia coli [E. coli] as the cause of diseases classified elsewhere; I10 Essential (primary) hypertension; E66.9 Obesity, unspecified; Z68.37 Body mass index [BMI] 37.0-37.9, adult; Z85.038 Personal history of other malignant neoplasm of large intestine; Z86.010 Personal history of colon polyps; Z88.1 Allergy status to other antibiotic agents